=== PATIENT | male | born 1990 | race Caucasian/White ===

== ENCOUNTER 2019-04-18 10:22 | Emergency (ER) | payer BC ==
[~2019-04-18] VITALS: Ht 177.8 cm; Wt 66.7 kg
[2019-04-18 10:26] VITALS: BP 150/89
[2019-04-18] MEDS ORDERED: LIDOCAINE 2%-EPI 1:100,000 30 ML VIAL ONE (11:45)
[2019-04-18] MEDS ORDERED: LIDOCAINE 1% INJ 50 ML MDV IJ ONE (12:13)
--- NOTE | 2019-04-18 12:14 | NUR ---
DR REDDING AT BEDSIDE FOR LACERATION REPAIR.
--- NOTE | 2019-04-18 13:59 | NUR ---
LAC REPAIR DONE. PROVIDED W/ WOUND CARE. PT D/C HOME IN STABLE CONDITION.
== END 2019-04-18 14:02 | disposition home or self-care (01) ==
LOC: ER 10:24
DX: S61.210A Laceration without foreign body of right index finger without damage to nail, initial encounter (principal); X58.XXXA Exposure to other specified factors, initial encounter; Y93.89 Activity, other specified; Y92.89 Other specified places as the place of occurrence of the external cause; Y99.8 Other external cause status
CPT/HCPCS: 99282; A6403; J3490